=== PATIENT | female | born 1985 | race Caucasian/White ===

== ENCOUNTER 2018-06-09 18:38 | Inpatient (IN) | payer OTHER ==
--- NOTE | 2018-06-09 19:57 | PN ---
L&D Outpatient: Visit - Reproductive Information Estimated Due Date: 06/14/18 Gestational Age: 39 Weeks and 2 Days : 2 Para: 1 - Reason for Visit Visit Reason: contractions irregular uncomfortable. has not slept in 4-5 days - Antepartal Records Antepartal Record: Reviewed, Uncomplicated - Patient History Patient History Significant: Yes Patient History Significant For: previous for breech Review of Systems Constitutional: Comfortable CV Complaint: No Respiratory: Shortness of Breath: No Gastrointestinal: No Nausea/Vomiting Genitourinary: No Leaking Fluid, Spotting Musculoskeletal: Contractions Neurological: No Headache Movement: Normal L&D Outpatient: Exam - Abdominal Exam Abdomen Exam: Non-Tender - Membranes Membrane Status: Intact - Ultrasound/Biophysical Profile Ultrasound Status: Not Done EFM Findings - External Monitor Findings Baseline Heart Rate: 140 External Monitor Findings: Accelerations Present, Variability Moderate Contractions: Irregular, Mild, < 45 Seconds L&D Outpatient: Asses/Plan Assessment: /prodromal labor - Discharge Diagnosis Discharge Diagnosis: False Labor Plan: Other - d/w pt option of therapeutic rest/ going home / arom with expectant management
[2018-06-09] MEDS ORDERED: Promethazine INJ(RESTRICTED)* 25 MG/ML 1 ML VIAL IM PRN (19:58)
[2018-06-09] MEDS ORDERED: Nalbuphine* 10 MG/ML 1 ML VIAL IV PRN (19:58)
[2018-06-09] MEDS ORDERED: Nalbuphine* 10 MG/ML 1 ML VIAL IM PRN (20:35)
--- NOTE | 2018-06-09 22:38 | HP ---
General Information - Reason for Visit contractions/ srom 2200 - General Information Maternal Age: 32 Grav: 2 Para: 1 SAB: 0 IEA: 0 Estimated Due Date: 06/14/18 Determined By: LMP Maternal Blood Type and Rh: O Negative - Results this Serology/RPR Result: Non-Reactive Rubella Result: Immune HBsAg Result: Negative HIV Result: Negative GBS Culture Result: Negative Past Medical History Delivery History: Hx C/Section Pertinent Past Medical History: See Records Pertinent Past Surgical History: See Records Pertinent Family History: See Records - Antepartal Records Antepartal Records: Reviewed, Uncomplicated Review of Systems Constitutional: Uncomfortable Genitourinary: Leaking Fluid Movement: Normal Exam Allergies/Adverse Reactions: Allergies No Known Allergies Allergy (Verified 11/13/15 09:05) - Measurements Height: 5 ft 8.5 in Weight: 171 lb Weight in lbs: [phone] Body Mass Index (BMI): 25.6 Pre- Weight: 140 lb Weight Gained This : 31 lbs and 0 ozs - Exam Breast: Breast Exam Deferred Extremities: No Edema Heart: Normal Rhythm/Heart Sounds HEENT: No Significant Findings Lungs: Clear Bilaterally Rectal: Rectal Exam Deferred Targeted Exam Findings Cervical Exam: 2cm Effacement: 80% Station: -1 Presenting Part: Vertex Membrane Status: SROM Amniotic Fluid Evaluation: Gross Rupture Assessment/Plan - Assessment admit / expectant management - Obstetrical Risk Factors Obstetrical Risk Factors: Previous C/Section in Labor - Plan Plan: Admit - Anticipate Vaginal Delivery
[2018-06-09 22:48] LABS: ABS Basophils 0 10^3/ul (0-0.2); ABS Eosinophils 0.1 10^3/ul (0-0.6); ABS Lymphocytes 2.2 10^3/ul (1.0-4.8); ABS Neutrophils 9.4 10^3/ul (1.5-7.7); ABS Nucleated RBC 0 10^3/ul; Eosinophil % 0.6 % (0-6); Hematocrit 38 % (35-47); Lymphocyte % 17.4 % (25-47); Mean Corpuscular HGB Conc 34 g/dl (31-36); Mean Corpuscular Hemoglobin 30 pg (27-31); Mean Corpuscular Volume 88 fL (80-97); Mean Platelet Volume 8.6 um3 (7.4-10.4); Nucleated Red Blood Cells % 0; Platelet Count 178 10^3/ul (150-450); Red Blood Count 4.33 10^6/ul (4.00-5.40); Red Cell Distribution Width 14 % (10.5-15); White Blood Count 12.6 10^3/ul (3.5-10.8)
[2018-06-09] MEDS ORDERED: OBEPIDURAL* 250 ML EPIDURAL ONE (23:36)
[2018-06-10] MEDS ORDERED: Sodium Citrate/Citric Acid* 15 ML UDC PO PRN (00:52)
[2018-06-10] MEDS ORDERED: EPHEDrine (Pressors)* 50 MG/ML VIAL IV PUSH PRN ×2 (00:52)
[2018-06-10] MEDS ORDERED: Phenylephrine IV* 40 MCG/ML 10 ML SYRINGE IV PUSH PRN ×2 (00:52)
[2018-06-10] MEDS ORDERED: Famotidine TAB* 20 MG PO PRN (00:52)
[2018-06-10] MEDS ORDERED: OBEPIDURAL* 250 ML EPIDURAL SCH (01:00)
[2018-06-10] MEDS ORDERED: Oxytocin in LR* 20 UNITS/1,000 ML BAG IVPB ONE (03:02)
[2018-06-10] MEDS ORDERED: Acetaminophen TAB* 325 MG PO PRN (03:16)
[2018-06-10] MEDS ORDERED: Glycerin ADULT SUPP PR PRN (03:16)
[2018-06-10] MEDS ORDERED: Dibucaine 1% 28.35 GM TUBE PR PRN (03:16)
[2018-06-10] MEDS ORDERED: Witch Hazel PAD* JAR TOPICAL PRN (03:16)
[2018-06-10] MEDS ORDERED: RHO D Immune Globulin (HUMAN)* 300 MCG = 1,500 I.U. INJ IM ONE (03:17)
--- NOTE | 2018-06-10 03:20 | PROCNOTE ---
[facility]: Delivery Note - Nursery Level of Nursery: Regular/Bedside - Perineum Perineal Injury: Periurethral Laceration Perineal Repair: By Delivering Practioner - Events Delivery Events of Note: None Apply - fhr baseline elevated during start of pushing / pushed x 30 minutes with rapid descent
[2018-06-10] MEDS ORDERED: Oxytocin in LR* 20 UNITS/1,000 ML BAG IVPB SCH (04:00)
[2018-06-10] MEDS ORDERED: Simethicone TAB* 80 MG TAB.CHEW PO SCH (08:30)
[2018-06-10] MEDS: Ibuprofen TAB* 600 MG PO PRN ×3 (09:34→21:56)
[2018-06-10] MEDS: Docusate CAP* 100 MG PO SCH ×3 (09:34→21:57)
[2018-06-11] MEDS: Ibuprofen TAB* 600 MG PO PRN (06:02)
[2018-06-11 07:04] LABS: ABS Basophils 0 10^3/ul (0-0.2); ABS Eosinophils 0.1 10^3/ul (0-0.6); ABS Lymphocytes 1.8 10^3/ul (1.0-4.8); ABS Monocytes 0.8 10^3/ul (0-0.8); ABS Neutrophils 7.3 10^3/ul (1.5-7.7); ABS Nucleated RBC 0 10^3/ul; Eosinophil % 1.4 % (0-6); Hematocrit 31 % (35-47); Hemoglobin 10.5 g/dl (12.0-16.0); Lymphocyte % 17.9 % (25-47); Mean Corpuscular HGB Conc 34 g/dl (31-36); Mean Corpuscular Hemoglobin 30 pg (27-31); Mean Corpuscular Volume 88 fL (80-97); Mean Platelet Volume 8.4 um3 (7.4-10.4); Nucleated Red Blood Cells % 0; Platelet Count 159 10^3/ul (150-450); Red Blood Count 3.51 10^6/ul (4.00-5.40); Red Cell Distribution Width 14 % (10.5-15)
[2018-06-11 07:44] VITALS: BP 119/74
[2018-06-11] MEDS ORDERED: Ferrous Gluconate TAB* 324 MG TAB PO SCH (09:00)
== END 2018-06-11 10:20 | disposition home or self-care (01) | DRG 560 ==
LOC: MCHOBOUT 18:38 → MCHOB 22:02
PROVIDERS: ADMIT Obstetrics & Gynecology; ATTEND Obstetrics & Gynecology
PROC: 10E0XZZ Delivery of Products of Conception, External Approach (ICD-10-PCS; principal; 2018-06-10)
PROC: 4A1HXCZ Monitoring of Products of Conception, Cardiac Rate, External Approach (ICD-10-PCS; 2018-06-10)
PROC: 0HQ9XZZ Repair Perineum Skin, External Approach (ICD-10-PCS; 2018-06-10)
PROC: 0UQMXZZ Repair Vulva, External Approach (ICD-10-PCS; 2018-06-10)
DX: O34.211 Maternal care for low transverse scar from previous cesarean delivery (principal); O77.0 Labor and delivery complicated by meconium in amniotic fluid; O71.82 Other specified trauma to perineum and vulva; O70.0 First degree perineal laceration during delivery; Z3A.39 39 weeks gestation of pregnancy; Z37.0 Single live birth; Z67.41 Type O blood, Rh negative
CPT/HCPCS: 36415; 85025; 86850; 86900; 86901; A9270-GY; J2300; J2550

== ENCOUNTER 2020-12-02 19:21 | Inpatient (IN) ==
[2020-12-02 20:33] LABS: Hematocrit 35 % (35-47); Mean Corpuscular HGB Conc 34 g/dL (31-36); Mean Corpuscular Hemoglobin 29 pg (27-31); Mean Corpuscular Volume 87 fL (80-97); Mean Platelet Volume 8.5 fL (7.4-10.4); Platelet Count 206 10^3/uL (150-450); Red Blood Count 4.09 10^6 /uL (3.70-4.87); Red Cell Distribution Width 14 % (10-15); White Blood Count 15.6 10^3/uL (3.5-10.8)
[2020-12-02] MEDS ORDERED: Buffered Lidocaine 1% SYRIN 1 ml INTRADERM ONE (20:47)
[2020-12-02] MEDS ORDERED: Lactated Ringers 1000 ml BAG 1,000 ML IV ONE (20:47)
[2020-12-02] MEDS ORDERED: OBEPIDURAL 250 ML EPIDURAL ONE (20:51)
[2020-12-02] MEDS ORDERED: Lactated Ringers 1000 ml BAG 1,000 ML IV SCH ×2 (21:00→23:00)
[2020-12-02] MEDS ORDERED: Sodium Citrate/Citric Acid LIQ 15 ML UDC PO PRN (22:51)
[2020-12-02] MEDS ORDERED: Phenylephrine 40 mcg/mL 10mL (400mcg) SYRINGE IV PUSH PRN (22:51)
[2020-12-02] MEDS ORDERED: OBEPIDURAL 250 ML EPIDURAL SCH (23:00)
[2020-12-02 23:05] LABS: Urine Benzodiazepine Screen None Detected (None Detect); Urine Cannabinoids Screen None Detected (None Detect); Urine Opiates Screen None Detected (None Detect)
[2020-12-03] MEDS ORDERED: Oxytocin in LR 20 UNITS/1,000 ML BAG IVPB ONE (00:41)
[2020-12-03] MEDS ORDERED: Glycerin ADULT 2.4 gm SUPP PR PRN (00:48)
[2020-12-03] MEDS ORDERED: RHO D Immune Globulin (HUMAN) 300 MCG = 1,500 I.U. INJ IM PRN (00:48)
[2020-12-03] MEDS ORDERED: Dibucaine 1% OINT 28.35 GM TUBE PR PRN (00:48)
[2020-12-03] MEDS ORDERED: Witch Hazel PAD JAR TOPICAL PRN (00:48)
[2020-12-03] MEDS ORDERED: Oxytocin in LR 20 UNITS/1,000 ML BAG IVPB SCH (01:00)
[2020-12-04 06:49] LABS: ABS Basophils 0.1 10^3/ul (0-0.2); ABS Eosinophils 0.2 10^3/ul (0-0.6); ABS Lymphocytes 2.4 10^3/ul (1.0-4.8); ABS Monocytes 0.8 10^3/ul (0-0.8); ABS Neutrophils 5.6 10^3/ul (1.5-7.7); Hematocrit 32 % (35-47); Hemoglobin 10.8 g/dL (12.0-16.0); Lymphocyte % 26.6 %; Mean Corpuscular HGB Conc 34 g/dL (31-36); Mean Corpuscular Hemoglobin 30 pg (27-31); Mean Corpuscular Volume 87 fL (80-97); Mean Platelet Volume 8.1 fL (7.4-10.4); Platelet Count 187 10^3/uL (150-450); Red Blood Count 3.64 10^6 /uL (3.70-4.87); Red Cell Distribution Width 14 % (10-15); White Blood Count 9.1 10^3/uL (3.5-10.8)
[2020-12-04 08:09] VITALS: BP 118/75
== END 2020-12-04 11:05 | disposition home or self-care (01) | DRG 807 ==
LOC: MCHOBOUT 19:21 → MCHOB 19:58
PROVIDERS: ADMIT Obstetrics & Gynecology; ATTEND Obstetrics & Gynecology